=== PATIENT | female | born 1975 | race Caucasian/White ===

== ENCOUNTER → 2021-07-23 | Outpatient (CLI) | payer OTHER ==
--- NOTE | 2021-07-23 12:48 | RAD ---
STUDY: MRI of the left shoulder without contrast INDICATION: Left shoulder pain. COMPARISON: Radiographs from 01/01/2021 TECHNIQUE: Multiplanar MR imaging of the left shoulder performed without the use of intravenous or in tra-articular contrast. FINDINGS: AC joint: Moderate arthrosis with periarticular marrow edema and cystic change. Within normal limits subacromial subdeltoid bursa. Rotator cuff: No rotator cuff tear or significant tendinosis. Normal rotator cuff musculature bulk an d signal. Labrum: Intact. Long head biceps tendon: Intact and normally located. Cartilage: No high-grade or full-thickness chondral defect. Bones: Nonexpansile hyper-trabeculated process involving the entirety of the glenoid and scapular nec k as well as extending into the scapular body, scapular spine and a portion of the coracoid process. No cortical destruction. Miscellaneous: No joint effusion or pericapsular soft tissue edema. Axillary lymph nodes are normal i n size. Impression: 1. Moderate arthrosis at the AC joint with periarticular cystic change and active marrow edema. Kavon elate for pinpoint tenderness to suggest this as the cause of the patient's shoulder pain. Unremarkab le subacromial subdeltoid bursa. 2. Intact rotator cuff, labrum and long head biceps. 3. Nonexpansile, hyper-trabeculated process involving the scapula to include the entirety of the gle noid and scapular neck. This is without aggressive features and the favored etiology is an incidental osseous hemangioma. In retrospect this was present on the 01/01/2021 radiographs and is without franco e in extent considering differences in technique. Radiographic follow-up could be performed if there is progressive unexplained pain at the shoulder. Electronically signed by: COLLEEN LOPEZ MD (07/23/2021 12:46 PM) [id number]
== END ==
LOC: MRI 07:23
DX: M19.012 Primary osteoarthritis, left shoulder (principal); M25.812 Other specified joint disorders, left shoulder
CPT/HCPCS: 73221